=== PATIENT | female | born 1955 ===

== ENCOUNTER 2018-07-06 14:29 | Outpatient (CLI) | payer OTHER | END 2018-07-06 14:30 | disposition home or self-care (01) | LOC: C.DEXAIC 14:30 ==

== ENCOUNTER 2018-08-11 08:08 | Day surgery (SDC) | payer OTHER ==
[2018-08-10 10:40] VITALS: BMI 25.0
--- NOTE | 2018-08-11 11:43 | CP.SDSHP ---
<Danielle Garcia - Last Filed: 08/11/18 11:40> Same Day Surgery [facility] & [facility] - History Proposed Procedure: colonoscopy Pre-Op Diagnosis: change in bowl habit. colon cancer screening - Previous Medical/Surgical History Cardiac: Hypertension Endocrine/Metabolic: Diabetes Misc: Other (hypercholesteroemia, proteinuria) Previous Surgical History: eye surgery - Allergies Allergies: Allergies MDX Penicillin [Penicillin] Allergy (Unknown, Unverified 08/11/18 08:35) ANAPHYLAXIS tree and shrub pollen Allergy (Verified 08/11/18 08:35) sneeze - Current Medications Current Medications: metformin simvastatin poliglitone - Physical Exam General Appearance: no acute distress Mental Status: Alert & Oriented x3 Neuro: WNL Heart: WNL Lungs: WNL GI: WNL - {Optional Preform as Required} Abdomen: WNL - Impression Impression: change in bowel habit. screening colon cancer Pt. Evaluated Today:Candidate for Anesthesia & Procedure: Yes - Date & Time Date: 08/11/18 Time: 11:00 Short Stay Discharge - Short Stay Discharge Admitting Diagnosis/Reason for Visit: ENCOUNTER FOR SCREENING Disposition: HOME/ ROUTINE <Thong Espino - Last Filed: 08/11/18 11:45> Same Day Surgery H & P - Allergies Allergies: Allergies MDX Penicillin [Penicillin] Allergy (Unknown, Unverified 08/11/18 08:35) ANAPHYLAXIS tree and shrub pollen Allergy (Verified 08/11/18 08:35) sneeze Attending/Attestation - Attestation I have personally seen and examined this patient.: Yes I have fully participated in the care of the patient.: Yes I have reviewed all pertinent clinical information: Yes Notes (Text): 08/11/18 11:45 colonoscopy for colon cancer screening Risks/benefits understood and accepted.
[2018-08-11] MEDS ORDERED: Propofol 10 mg/ml Inj (20 ML) ONE ×2 (11:47→12:11)
[2018-08-11 13:11] VITALS: BP 115/67; PULSE 78; RESP 21; O2SAT 98
[2018-08-11 13:41] VITALS: TEMP 96.9
== END 2018-08-11 13:45 | disposition home or self-care (01) ==
LOC: C.ENDO 08:08
PROVIDERS: ATTEND Internal Medicine Gastroenterology
DX: Z12.11 Encounter for screening for malignant neoplasm of colon (principal); D12.0 Benign neoplasm of cecum; D12.5 Benign neoplasm of sigmoid colon; D12.4 Benign neoplasm of descending colon; K64.1 Second degree hemorrhoids; I10 Essential (primary) hypertension; E11.9 Type 2 diabetes mellitus without complications; E78.00 Pure hypercholesterolemia, unspecified; Z88.0 Allergy status to penicillin; Z88.8 Allergy status to other drugs, medicaments and biological substances; Z79.84 Long term (current) use of oral hypoglycemic drugs; Z79.899 Other long term (current) drug therapy
CPT/HCPCS: 45380; 45385; 82948; 88305; J2704